=== PATIENT | female | born 2000 | race Caucasian/White ===

== ENCOUNTER 2023-10-06 00:31 | Emergency (ER) | payer BC | END 2023-10-06 01:12 | disposition home or self-care (01) | LOC: CSHERS 00:31 | DX: S90.932A Unspecified superficial injury of left great toe, initial encounter (principal); X58.XXXA Exposure to other specified factors, initial encounter | CPT/HCPCS: 99283 ==

== ENCOUNTER 2023-12-23 11:42 | Emergency (ER) | payer BC ==
[2023-12-23] MEDS ORDERED: Ibuprofen 200 MG TAB ONE (14:39)
[2023-12-23] MEDS ORDERED: Acetaminophen 500 MG TAB ONE (14:39)
== END 2023-12-23 14:15 | disposition home or self-care (01) ==
LOC: CSHERS 11:42
DX: B34.9 Viral infection, unspecified (principal); Z55.0 Illiteracy and low-level literacy
CPT/HCPCS: 87081; 87430; 99283

== ENCOUNTER 2024-10-13 14:01 | Day surgery (SDC) | payer BC, OTHER ==
[2024-10-13 14:27] VITALS: BMI 40.7
[2024-10-13] MEDS ORDERED: hydrALAZINE 20 MG/ML VIAL SLOW IVP PRN (15:11)
== END 2024-10-13 15:09 | disposition home or self-care (01) ==
LOC: CSHLD/OP 14:01
PROVIDERS: ATTEND Obstetrics & Gynecology
DX: O23.43 Unspecified infection of urinary tract in pregnancy, third trimester (principal); O99.343 Other mental disorders complicating pregnancy, third trimester; F31.9 Bipolar disorder, unspecified; Z3A.36 36 weeks gestation of pregnancy; Z88.0 Allergy status to penicillin; Z79.899 Other long term (current) drug therapy
CPT/HCPCS: 99283

== ENCOUNTER 2024-10-24 18:00 | Inpatient (IN) | payer BC, OTHER ==
[~2024-10-24 18:00] MED LIST: Bupivacaine 0.25% HCL 30 ML VIAL ONE; Bupivacaine HCl 0.5%/Epinephrine 1:200,000/PF 30 ml Vial ONE; Lidocaine 1% (PF) 30 ML VIAL SC PRN; Lidocaine 2% 10 ML INJ ONE; Ondansetron PF 4 MG/2 ML Vial IVP PRN; Oxytocin 30 units/NS 500 ML 500 ML IV SCH; hydrALAZINE 20 MG/ML VIAL SLOW IVP PRN
[2024-10-24 18:39] VITALS: BMI 40.7
[2024-10-24 20:04] LABS: Hematocrit 34.4 % (34.9-44.5); Hemoglobin 11.7 g/dL (12.0-15.5); Mean Corpuscular Hemoglobin 29.8 pg (27.0-33.0); Mean Corpuscular Volume 87.8 fL (81.6-98.3); Platelet Count 320 10x3/uL (150-450); Red Blood Cell (RBC) Count 3.92 10x6/uL (3.90-5.03); White Blood Cell (WBC) Count 11.25 10x3/uL (3.5-10.5)
[2024-10-24 20:30] LABS: ALT (SGPT) 11 U/L (Less than 34); AST (SGOT) 16 U/L (11-34); Albumin 2.9 g/dL (3.1-4.5); Alkaline Phosphatase 186 U/L (40-110); Anion Gap 11 mmol/L (10-20); BUN (Urea Nitrogen) 8 mg/dL (7.0-18.7); Bilirubin, Total 0.3 mg/dL (0.3-1.2); Calc. Creatinine Clearance 213 mL/min (70-130); Calcium 9.2 mg/dL (7.8-10.44); Carbon Dioxide 22 mmol/L (22-29); Chloride 107 mmol/L (98-107); Globulin 4.0 g/dL (2.4-3.5); Glucose 80 mg/dL (70-105); Potassium 3.4 mmol/L (3.5-5.1); Sodium 137 mmol/L (136-145)
[2024-10-24 20:53] LABS: Syphilis Antibody Index 0.07 S/CO (<1.00 Non-Reactive)
[2024-10-24 20:55] LABS: HIV (1/2) Antibody/Antigen Non-Reactive (NonReactive); HIV 1/2 INDEX 0.13 S/CO (<1.00); Hep B Surf Ag - L&D Non-Reactive S/CO (NonReactive)
[2024-10-25] MEDS ORDERED: Ondansetron PF 4 MG/2 ML Vial IVP PRN ×4 (13:01→18:15)
[2024-10-25] MEDS ORDERED: diphenhydrAMINE 50 MG/ML VIAL IVP PRN ×2 (13:01→18:15)
[2024-10-25] MEDS ORDERED: Acetaminophen 325 MG TAB PO PRN (13:01)
[2024-10-25] MEDS: fentaNYL/Ropivacaine Epidural 100 ML ONE (13:13)
[2024-10-25] MEDS ORDERED: fentaNYL 2 mcg/Ropivacaine 0.2% Epidural 100 ML CADD EPIDURAL SCH (13:15)
[2024-10-25] MEDS ORDERED: Communication Order-Pharmacy FS SCH ×2 (13:15→18:15)
[2024-10-25] MEDS: Azithromycin 500 MG VIAL ONE (15:16)
[2024-10-25] MEDS: CEFAZOLIN 2 GM VIAL ONE (15:16)
[2024-10-25 17:32] LABS: Analyzer IN Cardio CS NICU
[2024-10-25 17:34] LABS: Analyzer IN Cardio CS NICU; pH (Cord, venous) 7.258 (7.250-7.350)
[2024-10-25] MEDS ORDERED: hydrALAZINE 20 MG/ML VIAL SLOW IVP PRN (17:56)
[2024-10-25] MEDS ORDERED: Lanolin Ointment 7 GM TUBE TOP PRN (17:56)
[2024-10-25] MEDS ORDERED: Ketorolac Tromethamine 30 MG (1 mL) VIAL IVP SCH (18:15)
[2024-10-25] MEDS ORDERED: Meperidine HCl/PF 25 MG (1 mL) VIAL SLOW IVP PRN (18:15)
[2024-10-25] MEDS: Oxytocin 10 UNITS/ML VIAL ONE (21:57)
[2024-10-25] MEDS: KETAMINE 100 MG/ML (5ML VIAL) ONE (21:57)
[2024-10-25] MEDS: Erythromycin Base 0.5% Oint 1 GM TUBE ONE (21:58)
[2024-10-25] MEDS: Ketorolac Tromethamine 30 MG (1 mL) VIAL IVP SCH (23:10)
[2024-10-26 05:48] LABS: Hematocrit 26.1 % (34.9-44.5); Hemoglobin 8.7 g/dL (12.0-15.5); Mean Corpuscular Hemoglobin 30.0 pg (27.0-33.0); Mean Corpuscular Volume 90.0 fL (81.6-98.3); Platelet Count 245 10x3/uL (150-450); Red Blood Cell (RBC) Count 2.90 10x6/uL (3.90-5.03); White Blood Cell (WBC) Count 14.90 10x3/uL (3.5-10.5)
[2024-10-26] MEDS: Simethicone Chewable 80 MG TAB PO PRN (08:55)
[2024-10-26] MEDS: HYDROcodone/Acetaminophen 5/325 mg Tablet PO PRN (08:55)
[2024-10-26] MEDS: Boostrix 0.5 ML (Tdap) VIAL (>/=7 yrs of age) IM ONE (08:56)
[2024-10-26] MEDS: HYDROcodone/Acetaminophen 10/325 mg Tablet PO PRN (13:38)
[2024-10-26] MEDS: Ibuprofen 800 MG TAB PO SCH (13:44)
[2024-10-28] MEDS: HYDROcodone/Acetaminophen 10/325 mg Tablet PO PRN (06:17)
[2024-10-28 08:59] VITALS: BP 126/82; TEMP 98.3
== END 2024-10-28 12:54 | disposition home or self-care (01) | DRG 788 ==
LOC: CSHLD 18:27 → CSHPP 10-25 21:09
PROVIDERS: ADMIT Obstetrics & Gynecology; ATTEND Obstetrics & Gynecology
PROC: 10D00Z1 Extraction of Products of Conception, Low, Open Approach (ICD-10-PCS; principal; 2024-10-25)
PROC: 3E03329 Introduction of Other Anti-infective into Peripheral Vein, Percutaneous Approach (ICD-10-PCS; 2024-10-25)
DX: O76 Abnormality in fetal heart rate and rhythm complicating labor and delivery (principal); O13.4 Gestational [pregnancy-induced] hypertension without significant proteinuria, complicating childbirth; Z88.0 Allergy status to penicillin; Z3A.38 38 weeks gestation of pregnancy; Z88.1 Allergy status to other antibiotic agents; Z37.0 Single live birth; Z79.899 Other long term (current) drug therapy
CPT/HCPCS: 36415; 51702; 80053; 82805; 85027; 86780; 86850; 86900; 86901; 87340; 87389; J0456; J0665; J1885; J2274; J2590; J3010